=== PATIENT | female | born 1995 | race Caucasian/White ===

== ENCOUNTER 2022-04-26 16:43 | Emergency (ER) | payer OTHER, SELFPAY ==
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
[2022-04-26 17:04] VITALS: BP 139/81; PULSE 95; RESP 18; TEMP 36.5; O2SAT 97; BMI 45.6
[2022-04-26] MEDS: Acetaminophen 325 MG TABLET 650 MG PO (17:12)
[2022-04-26 19:08] VITALS: BP 123/85; PULSE 87; RESP 18; O2SAT 97
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
== END 2022-04-26 19:39 | disposition home or self-care (01) ==
PROVIDERS: Emergency Provider Student in an Organized Health Care Education/Training Program; PCP Internal Medicine
DX: S39.012A Strain of muscle, fascia and tendon of lower back, initial encounter (principal); S13.4XXA Sprain of ligaments of cervical spine, initial encounter; V43.52XA Car driver injured in collision with other type car in traffic accident, initial encounter; Y93.89 Activity, other specified; Y92.414 Local residential or business street as the place of occurrence of the external cause; Y99.9 Unspecified external cause status
CPT/HCPCS: 72040; 99283